=== PATIENT | female | born 1970 | race Caucasian/White ===

== ENCOUNTER 2022-04-07 14:05 | Emergency (ER) | payer OTHER, BC, SELFPAY ==
[2022-04-07 14:11] VITALS: BP 139/86; PULSE 105; RESP 18; TEMP 36.4; O2SAT 96
--- NOTE | 2022-04-07 14:11 | XRR_ITS ---
PROCEDURE INFORMATION: Exam: XR Left Ankle Exam date and time: 04/07/2022 2:26 PM Age: 51 years old Clinical indication: Injury or trauma; Fall; Swelling (edema); Ankle; Left; Additional info: Pain TECHNIQUE: Imaging protocol: Radiologic exam of the Left ankle. Views: 3 or more views. COMPARISON: No relevant prior studies available. FINDINGS: Bones/joints: There is no evidence for acute fracture or malalignment. Soft tissues: Normal. XR/XR ankle LT min 3V* [id number] IMPRESSION: No acute findings.
--- NOTE | 2022-04-07 14:19 | XRR_ITS ---
PROCEDURE INFORMATION: Exam: XR Left Foot Exam date and time: 04/07/2022 2:27 PM Age: 51 years old Clinical indication: Injury or trauma; Fall; Swelling (edema); Ankle; Left; Additional info: Foot pain TECHNIQUE: Imaging protocol: Radiologic exam of the Left foot. Views: 3 or more views. COMPARISON: CR (LOW EXM, ) 04/07/2022 2:26 PM FINDINGS: Bones/joints: There is no evidence for acute fracture or malalignment. Soft tissues: Normal. XR/XR foot LT min 3V* [id number] IMPRESSION: No acute findings.
--- NOTE | 2022-04-07 14:25 | W.ED.LOWEXIN ---
HPI - Extremity Injury (Lower) General: Chief Complaint: Extremity Injury, Lower Stated Complaint: left ankle pain Time Seen by Provider: 04/07/22 14:07 Source: patient Mode of arrival: wheelchair Limitations: no limitations History of Present Illness: Patient is a 51-year-old female presents to ED today for evaluation of a left foot and ankle injury that she sustained early this morning after twisting it. Patient states she has chronic lower back pain with radiculopathy to her left leg. She states she is seeing a surgeon in [place] for this. She states often times her leg will buckle causing her to fall which was the case this morning. She denies any other injuries during the fall. MD complaint: ankle injury and foot injury Onset (ago): hour(s) Injury: Left: ankle and foot Type of Injury: inversion Place: home Severity: severe Relieving factors: immobilization Exacerbating factors: weight bearing, movement and palpation Context: fall Associated symptoms: Reports inability to bear weight Other symptoms: none Treatments prior to arrival: bandage Review of Systems Musc: Reports: back pain (chronic-at baseline), extremity pain (L foot), extremity swelling (L foot), joint pain (L ankle) and joint swelling (L ankle); Denies: neck pain Physical Exam Const: COMMON NORMALS: no acute distress, patient oriented x3, no limitations, alert and well nourished GENERAL APPEARANCE: cooperative HENMT: COMMON NORMALS: normocephalic and atraumatic HEAD & SCALP: normal to inspection, normocephalic and atraumatic Neck/C-Spine: CERVICAL SPINE: No Cervical spine tenderness Extremity: COMMON NORMALS: capillary refill normal GENERAL: Yes normal exam except as noted LEFT LOWER EXTREMITY: Yes ankle joint (mild TTP to lateral malleolus; max tenderness to lateral foot) Left ankle: Yes neurovascular exam (normal) and Yes foot & digits (TTP and swelling to lateral/proximal foot; mild ecchymosis) Left foot and digits: Yes neurovascular exam (normal) Neuro: COMMON NORMALS: patient oriented x3, moves all extremities, no focal motor deficits and no sensory deficits noted SENSORIUM/ORIENTATION: Yes alert Skin: TRAUMA: no lacerations or abrasions Course Vital Signs: Vital signs: Vital Signs Temperature 97.6 F 04/07/22 14:11 Pulse Rate 105 H 04/07/22 14:11 Respiratory Rate 18 04/07/22 14:11 Blood Pressure 139/86 04/07/22 14:11 Pulse Oximetry 96 04/07/22 14:11 MDM - Extremity Injury (Lower) Medical Decision Making Preliminary reads of x-rays by myself are negative. Patient will be placed in an FRIDA wrap, given crutches, and recommend RICE therapy. Recommend follow-up with PCP in 1 to 2 weeks if ankle/foot does not seem to be improving. Discharge Plan Discharge Patient Disposition: Home Clinical Impression: Sprain of left foot Qualifiers: Encounter type: initial encounter Qualified Code(s): S93.602A - Unspecified sprain of left foot, initial encounter Condition: Stable Discharge Orders: Discharge ED (Routine); Ordered 04/07/22 Ordered By: Conchita Raymond Patient Instructions: Ankle Sprain (DC), Foot Sprain (ED), RICE Therapy Stand Alone Forms: Work/School Release Coding Level of Care Code ED Resident Medical Officer for Simone Jain
== END 2022-04-07 14:56 | disposition home or self-care (01) ==
PROVIDERS: Emergency Provider Physician Assistant
DX: S93.602A Unspecified sprain of left foot, initial encounter (principal); X50.1XXA Overexertion from prolonged static or awkward postures, initial encounter
CPT/HCPCS: 73610; 73630; 99285

== ENCOUNTER 2022-08-25 14:20 | Emergency (ER) | payer OTHER, MEDICAID, SELFPAY ==
[2022-08-25 14:22] VITALS: BP 155/101; PULSE 106; RESP 17; TEMP 36.6; O2SAT 96; BMI 26.6
--- NOTE | 2022-08-25 14:29 | W.ED.LOWEXIN ---
Documented by User: KARY Alvarez 08/26/22 07:25 HPI - Extremity Injury (Lower) General: Chief Complaint: Extremity Injury, Lower Stated Complaint: fall left knee/lower leg injury Time Seen by Provider: 08/25/22 14:29 Source: patient Mode of arrival: wheelchair Limitations: no limitations History of Present Illness: Patient is a 52-year-old female presents to ED today for evaluation of left knee and left hip pain. Patient states her left knee will often buckle causing her to fall which was the case this morning. She states during the fall she landed directly onto the left knee and believes she may have twisted the left hip. Patient states she cannot bear weight secondary to the pain. No other injuries or complaints at this time. She has not noticed any notable swelling to either joint or involving the extremity. Denies numbness, tingling, loss of sensation. MD complaint: hip injury and knee injury Onset (ago): hour(s) Injury: Left: hip and knee Place: home Severity: moderate Relieving factors: immobilization Exacerbating factors: weight bearing, movement and palpation Context: fall Associated symptoms: Reports inability to bear weight Other symptoms: none Review of Systems Musc: Reports: joint pain (L knee, L hip); Denies: neck pain, back pain, extremity swelling, joint swelling, joint redness or joint warmth Neuro: Reports: difficulty walking (secondary to left leg pain); Denies: numbness in extremities, weakness in extremities or sensory changes Physical Exam Const: COMMON NORMALS: no acute distress, average body habitus, patient oriented x3, no limitations, alert and well nourished Neck/C-Spine: CERVICAL SPINE: No Cervical spine tenderness Back/Pelvis: COMMON NORMALS: no thoracic nor lumbar tenderness Extremity: COMMON NORMALS: capillary refill normal, no joint enlargement, no clubbing, cyanosis or edema, no calf tenderness and no pedal edema GENERAL: Yes normal exam except as noted LEFT LOWER EXTREMITY: Yes hip joint (TTP although fairly good ROM w/o difficulty) Left hip: Yes neurovascular exam (normal) and Yes knee joint (abrasions and tenderness to L anterior knee; minimal swelling) Left knee: Yes ROM (hesitant ROM; limited with full flexion/extension) and Yes neurovascular exam (normal) Neuro: COMMON NORMALS: patient oriented x3, moves all extremities, no focal motor deficits and no sensory deficits noted SENSORIUM/ORIENTATION: Yes alert GAIT: Yes Unable to assess gait Course ED course: Patient had initially been discharged from the ED as I inadvertently overlooked her tibial plateau fracture on plain film. I personally called patient shortly after discharge and instructed her to return to the ED for knee immobilization/splinting. I spoke to Dr. Perez about patient's films and he requested CT imaging with 3D reconstruction which has now been ordered. Registration was able to place patient back on tracker to finish her care/change of dispo instructions. She will follow up with Dr. Perez in office following CT imaging-CM referral placed. Care will be transferred to Aisha Hughes PA-C pending completion of CT scan and disposition. ES Consultations: Consultation #1: Dr. Perez-recommends CT scan with 3D reconstruction, knee immobilizer, nonweightbearing, and will follow-up in office Vital Signs: Vital signs: Vital Signs Temperature 97.9 F 08/25/22 14:22 Pulse Rate 106 H 08/25/22 14:22 Respiratory Rate 17 08/25/22 16:24 Blood Pressure 155/101 08/25/22 14:22 Pulse Oximetry 96 08/25/22 14:22 Oxygen Delivery Me thod Room Air 08/25/22 14:22 MDM - Extremity Injury (Lower) Lab Data Radiology Impressions Hip/Pelvis X-Ray 08/25/22 14:38 IMPRESSION: No acute findings. If there is desire for further evaluation, a CT scan could be performed. Knee X-Ray 08/25/22 14:38 IMPRESSION: There is a comminuted fracture of the lateral tibial plateau Knee CT 08/25/22 17:20 IMPRESSION: There is a comminuted fracture of the lateral tibial plateau with 1 cm of depression. There is a posterior cruciate ligament avulsion fracture of the proximal posterior tibia. If there is desire for further evaluation, a MRI could be performed. Discharge Plan Discharge Patient Disposition: Home Clinical Impression: Acute pain of left hip Closed fracture of left tibial plateau Qualifiers: Encounter type: initial encounter Qualified Code(s): S82.142A - Displaced bicondylar fracture of left tibia, initial encounter for closed fracture Condition: Stable Discharge Orders: Discharge ED (Routine); Ordered 08/25/22 Ordered By: Conchita Raymond Referrals: Maldonado,Ely L, [employer] MANAGER [Primary Care Provider] - Discharge Diet: Usual diet Discharge Activity: Limit activity as instructed Activity Restrictions/Additional Instructions: Imaging today showed a posterior tibial plateau fracture. After speaking to orthopedics, we did obtain a CT examination for better evaluation of your injury, have placed you in a knee immobilizer, and also given you a prescription to get a wheelchair as you need to be 100% nonweightbearing on this extremity. You need to have follow-up with the clinical specialist and the request for follow-up appointment has been placed on your behalf. We are providing you some medication to help with pain but, you can still apply ice, use Tylenol and ibuprofen as needed. Sign Out Sign Out Data: Patient Sign Out occurred on 08/25/22 at 17:34. Patient's care was discussed, and care was transferred from to KARY Ochoa. Coding Level of Care Code ED [employer] Maker for Chg Fwd Documented by User: KARY Ochoa 08/25/22 18:17 HPI - Extremity Injury (Lower) General: Chief Complaint: Extremity Injury, Lower Stated Complaint: fall left knee/lower leg injury Time Seen by Provider: 08/25/22 14:29 Course Vital Signs: Vital signs: Vital Signs Temperature 97.9 F 08/25/22 14:22 Pulse Rate 106 H 08/25/22 14:22 Respiratory Rate 17 08/25/22 16:24 Blood Pressure 155/101 08/25/22 14:22 Pulse Oximetry 96 08/25/22 14:22 Oxygen Delivery Me thod Room Air 08/25/22 14:22 MDM - Extremity Injury (Lower) Medical Decision Making TATY SolizC: I received transfer of care of this patient at 1700 from Conchita Raymond NP. Patient has known tibial plateau fracture and, Conchita had consulted with orthopedics. Orthopedic recommended CT examination, knee immobilizer, nonweightbearing, and follow-up in the office. At this time, patient was still waiting to go to CT. CT was performed, knee immobilizer was ordered, and a DME order for wheelchair with leg lift was given. Patient was indicating more pain and a Varina was provided prior to discharge. Patient was also given a prescription for Varina for home. Patient was notified that a case management referral for her follow-up to orthopedics had been initiated on her behalf to have her ER follow-up. Differential Diagnosis Likely ankle sprain and strain, fracture of femur and fracture of hip Lab Data Radiology Impressions Hip/Pelvis X-Ray 08/25/22 14:38 IMPRESSION: No acute findings. If there is desire for further evaluation, a CT scan could be performed. Knee X-Ray 08/25/22 14:38 IMPRESSION: There is a comminuted fracture of the lateral tibial plateau Knee CT 08/25/22 17:20 IMPRESSION: There is a comminuted fracture of the lateral tibial plateau with 1 cm of depression. There is a posterior cruciate ligament avulsion fracture of the proximal posterior tibia. If there is desire for further evaluation, a MRI could be performed. Discharge Plan Discharge Patient Disposition: Home Clinical Impression: Acute pain of left hip Closed fracture of left tibial plateau Qualifiers: Encounter type: initial encounter Qualified Code(s): S82.142A - Displaced bicondylar fracture of left tibia, initial encounter for closed fracture Condition: Stable Discharge Orders: Discharge ED (Routine); Ordered 08/25/22 Ordered By: Conchita Raymond Referrals: Ely Maldonado APN [Primary Care Provider] - Discharge Diet: Usual diet Discharge Activity: Limit activity as instructed Activity Restrictions/Additional Instructions: Imaging today showed a posterior tibial plateau fracture. After speaking to orthopedics, we did obtain a CT examination for better evaluation of your injury, have placed you in a knee immobilizer, and also given you a prescription to get a wheelchair as you need to be 100% nonweightbearing on this extremity. You need to have follow-up with the clinical specialist and the request for follow-up appointment has been placed on your behalf. We are providing you some medication to help with pain but, you can still apply ice, use Tylenol and ibuprofen as needed. Sign Out Sign Out Data: Patient Sign Out occurred on 08/25/22 at 17:34. Patient's care was discussed, and care was transferred from to KARY Ochoa. Coding Level of Care Code ED [employer] Maker for Simone Jain
--- NOTE | 2022-08-25 14:38 | XRR_ITS ---
PROCEDURE INFORMATION: Exam: XR Left Hip Exam date and time: 08/25/2022 3:05 PM Age: 52 years old Clinical indication: Injury or trauma; Fall; Blunt trauma (contusions or hematomas); Left; Hip; Additional info: Fall/trauma; One view pelvis too please TECHNIQUE: Imaging protocol: Radiologic exam of the left hip. Views: 2 or 3 views hip with pelvis when performed. COMPARISON: No relevant prior studies available. FINDINGS: Bones/joints: Unremarkable. No acute fracture. Soft tissues: Unremarkable. XR/XR hip LT 2-3V wo/w pel* [id number] IMPRESSION: No acute findings. If there is desire for further evaluation, a CT scan could be performed.
--- NOTE | 2022-08-25 14:38 | XRR_ITS ---
PROCEDURE INFORMATION: Exam: XR Left Knee Exam date and time: 08/25/2022 3:05 PM Age: 52 years old Clinical indication: Injury or trauma; Fall; Wound; Patella or knee; Left; Without foreign body; Additional info: Fall/trauma TECHNIQUE: Imaging protocol: Radiologic exam of the left knee. Views: 3 views. COMPARISON: CR XR foot LT min 3V* [id number] 04/07/2022 2:27 PM FINDINGS: Bones/joints: There is a comminuted fracture of the lateral tibial plateau with approximately 0.7 cm of depression. No dislocation. Soft tissues: There is a small suprapatellar effusion. XR/XR knee LT 3V* [id number] IMPRESSION: There is a comminuted fracture of the lateral tibial plateau
[2022-08-25] MEDS: ketorolac 60 mg/2 mL INJ IM (14:51)
[2022-08-25 16:24] VITALS: RESP 17
--- NOTE | 2022-08-25 17:20 | CTR_ITS ---
PROCEDURE INFORMATION: Exam: CT Left Lower Extremity Without Contrast, Knee Exam date and time: 08/25/2022 5:30 PM Age: 52 years old Clinical indication: Injury or trauma; Fall; Blunt trauma; Knee; Left; Additional info: Tibial plateau fracture, 3d bony reconstruction please TECHNIQUE: Imaging protocol: CT of the left lower extremity without contrast was performed. Exam focused on the knee. Radiation optimization: All CT scans at this facility use at least one of these dose optimization techniques: automated exposure control; mA and/or kV adjustment per patient size (includes targeted exams where dose is matched to clinical indication); or iterative reconstruction. REPORTING DATA: Count of CT and Cardiac NM exams in prior 12 months: This patient has received 0 known CTs and 0 known cardiac nuclear medicine studies in the 12 months prior to the current study. COMPARISON: CR XR knee LT 3V* [id number] 08/25/2022 3:05 PM RADIATION DOSE METRICS: Total DLP (mGy-cm): 322.83 FINDINGS: Bones/joints: There is a comminuted fracture of the lateral tibial plateau with 1 cm of depression. The fracture extends through the base of the tibial spine and extends posteriorly through the posterior mid tibia at the PCL insertion as seen on sagittal image 29. This latter fracture represents a posterior cruciate ligament avulsion fracture. There is some anterior subluxation of the femur relative to the tibia. The patella, femur and fibula appear intact. Soft tissues: There is a small suprapatellar effusion. The visualized anterior and posterior cruciate ligaments appear intact. CT/CT knee LT wo con* [id number] IMPRESSION: There is a comminuted fracture of the lateral tibial plateau with 1 cm of depression. There is a posterior cruciate ligament avulsion fracture of the proximal posterior tibia. If there is desire for further evaluation, a MRI could be performed.
[2022-08-25] MEDS: HYDROcodone-acetaminophen 5-325 mg Tablet 1 TAB PO (18:16)
--- NOTE | 2022-08-26 08:26 | DCPLANNER ---
Addendum entered by Charlene Ball 09/03/22 14:54: Patient had a follow up appointment scheduled with ortho - patient did attend appointment. Addendum entered by Charlene Ball 08/27/22 11:11: Patient has a follow up appointment scheduled for August at 11:[address] Perez at ortho. Original Note: resident services manager had message to schedule a follow up appointment for patient with ortho. resident services manager sent patients information to the front office staff at ortho. Patients information will be printed and reviewed. Clinic will call patient with appointment information.
== END 2022-08-25 19:18 | disposition home or self-care (01) ==
PROVIDERS: Emergency Provider Physician Assistant; PCP Nurse Practitioner Family
DX: S82.142A Displaced bicondylar fracture of left tibia, initial encounter for closed fracture (principal); M25.552 Pain in left hip; W18.39XA Other fall on same level, initial encounter
CPT/HCPCS: 29530; 73502; 73562; 73700; 96372; 99284; J1885

== ENCOUNTER 2022-08-28 14:21 | Outpatient (CLI) | payer OTHER, MEDICAID, SELFPAY | END 2022-08-28 14:22 | disposition home or self-care (01) | LOC: SPT 14:22 | PROVIDERS: PCP Nurse Practitioner Family; Visit Provider Orthopaedic Surgery | DX: Z46.89 Encounter for fitting and adjustment of other specified devices (principal); S82.142D Displaced bicondylar fracture of left tibia, subsequent encounter for closed fracture with routine healing; X58.XXXD Exposure to other specified factors, subsequent encounter | CPT/HCPCS: 97760; L1812 ==

== ENCOUNTER 2022-09-12 10:03 | Day surgery (SDC) | payer BC, MEDICAID, SELFPAY ==
[2022-09-12] VITALS (11 sets, daily range): BP systolic 139–167; BP diastolic 73–100; PULSE 75–90; RESP 15–18; TEMP 36.1–36.6; O2SAT 95–98
--- NOTE | 2022-09-12 | XR_ITS ---
WS: [id number] Left leg including the tibia and fibula, C-arm fluoroscopy, 09/12/2022 Clinical Data: FANNY PICS Comparison: Left knee, 08/25/2022 Findings: Dr. Stoner inserted orthopedic screws to reduce a lateral tibial plateau fracture. XR/XR tibia fibula LT 2V [id number] Impression: Internal fixation of left lateral tibial plateau fracture.
[2022-09-12] MEDS: acetaminophen 1,000 MG/100 ML PIGGYBACK 400 MG IV (11:46)
[2022-09-12] MEDS: sodium chloride 0.9% 1,000 ML 30 ML IV (11:46)
[2022-09-12] MEDS: gabapentin 300 mg Capsule PO (11:47)
[2022-09-12] MEDS: CELEcoxib 200 mg Capsule 400 MG PO (11:47)
[2022-09-12] MEDS: scopolamine 1.5 Patch 1 PATCH TRANSDERMA (11:52)
--- NOTE | 2022-09-12 13:02 | W.PM.OPSUD ---
Surgery/Procedure H&P Update DATE OF PROCEDURE: September 12, 2022 DATE H&P PERFORMED: 08/28/22 H&P UPDATE INFORMATION: I have reviewed H&P completed within last 30 days PREOP DIAGNOSIS: Fracture left tibial plateau PLANNED PROCEDURE: Operation Date: 09/12/22 12:05 Proposed Procedures p arthroscopic ORIF left tibial plateau fracture/ 53630,S82.142A(Left) - Melquiades Perez MD
[2022-09-12] MEDS: midazolam 1 mg/mL INJ 2 mL 2 MG IVP (13:11)
--- NOTE | 2022-09-12 13:14 | ANES.PREANE2 ---
Pre-Anesthetic Assessment Height/Weight: Height 1.63 m Weight 70.307 kg Temp Pulse Resp BP Pulse Ox O2 Del Method 97.9 F 90 18 150/100 98 Room Air 09/12/22 11:10 09/12/22 11:10 09/12/22 11:10 09/12/22 11:10 09/12/22 11:10 09/12/22 11:32 Preop Diagnosis: Fracture left tibial plateau Operation Date: 09/12/22 12:05 Proposed Procedures p arthroscopic ORIF left tibial plateau fracture/ 58435,S82.142A(Left) - Melquiades Perez MD Familial anesthetic complications: none Was Beta Lesly taken within 24 hours: N/A Was Clonidine taken within 24 hours: N/A Last intake: Intake Last Liquid Date 09/11/22 Last Liquid Time 21:00 Last Solid Date 09/11/22 Last Solid Time 21:00 Social Tobacco and No alcohol Exam alert, oriented x 3 and regular rate & rhythm Airway Submandibular: within normal limits Cervical ROM: within normal limits Mallampati: Class II Dentition: full Pulmonary Chronic Obstructive Pulmonary Disease CV/HEM Hypertension Anesthetic Plan ASA status: 2 Anesthesia: General Medications/Allergies Home Medications Medication Instructions Recorded Confirmed Last Taken Type hinged knee brace #1 ea 08/28/22 08/28/22 Unknown Rx losartan 25 mg tablet 25 mg PO DAILY 08/28/22 09/11/22 09/11/22 History Allergies Allergy/AdvReac Type Severity Reaction Status Date / Time trazodone Allergy ALGY-Hives Verified 09/12/22 11:15 Current Medications Generic Name Dose Route Start Last Admin Trade Name Hillq PRN Reason Stop Dose Admin Sodium Chloride 1,000 mls @ 30 mls/hr 09/12/22 11:15 09/12/22 11:46 Sodium Chloride 0.9% IV 09/13/22 11:14 30 mls/hr .Q24H LIDA Administration Midazolam HCl 2 mg 09/12/22 11:10 09/12/22 13:11 Midazolam 1 Mg/Ml Inj 2 Ml IVP 2 mg ONCE PRN Administration Preop Anxiety PFSH Anesthesia Social History (Updated 08/28/22 @ 11:07 by David Pollack LPN) Smoking and tobacco status: current every day smoker Alcohol intake: never Substance/Drug Use: never Data Anesthesia Cardiac Studies: No Data to Display
[2022-09-12] MEDS: ceFAZolin 2,000 MG in sodium chloride 0.9% (plus) 50 ML 100 MG IV (13:32)
--- NOTE | 2022-09-12 14:56 | SUR.OPER ---
Called SO and notified him of surgical progress.
[2022-09-12] MEDS: fentaNYL 50 mcg/mL INJ 2mL IVP (15:40)
--- NOTE | 2022-09-12 15:42 | PM.OP ---
Operative Report Date of procedure: September 12, 2022 Pre-op diagnosis: Preop Diagnosis Fracture left tibial plateau Post-op diagnosis: same Procedure done: Arthroscopic assisted open reduction/internal fixation lateral tibial plateau with allograft bone Implants: Rachael 4.0mm ASNIS screws (65mmx2 and 60mmx1) Surgeon: Melquiades Perez Anesthesia: General Estimated blood loss (mL): 10 Tourniquet time (min): 60 Complications: none Findings: Depression fracture of the lateral tibial plateau with a nondisplaced split fragment and central depression of the lateral tibial plateau of approximately 1 cm of central joint depression. Condition: stable Disposition: PACU Brief History: The patient is a 52-year-old female who sustained a fall on 08/25/2022 with a fracture of her left lateral tibial plateau. CT scan revealed a centimeter of lateral joint depression. Open reduction internal fixation was chosen to restore lateral plateau height and regain stability of the knee. Procedure: The patient was taken to the operating room and given a general anesthesia. She is prepped and draped in the supine position with a tourniquet on the left leg. Timeout was performed. The knee was entered through a standard inferior medial and inferior lateral portal. The diagnostic arthroscopy of the knee was performed. The patellofemoral and medial compartment were pristine. The medial lateral menisci were healthy. Depression of the lateral tibial plateau of the estimated 1 cm was identified. Next the tourniquet was inflated to 300 mmHg. A anterior lateral incision was made and at Cecilia's tubercle extending distally. The anterior lateral musculature was elevated off the proximal and anterior tibial crest leaving a small tissue cuff for later repair. Next a [employer] Pro[employer] guide was used to drive a tibial pin from the lateral tibial plateau up into the central depressed area of tibial plateau. The pin was seen to just pucker the cartilage service. A 10 mm reamer was then passed over the pin penetrating the lateral cortex. A tamp was introduced through that tunnel and bone and with gentle tapping the joint could be elevated. Do to the time since the fracture extra time was utilized but the joint could be brought back up nearly to its [place] level. The defect was then packed with 30 cc of the cancellous bone chips. Next the skin was retracted posteriorly. A ASNIS guidewire was driven from the tibia medially. Over this was passed a 65 mm 4.0 mm cannulated screw with a washer. 2 additional screws were placed posteriorly each approximately a centimeter apart. The second screw measuring 65 mm in length and the third 60 mm in length. Imaging showed satisfactory position of the hardware and elevation of the lateral tibial plateau. The scope was then placed into the joint and the chondral surface inspected to be sure hardware was free of the joint and reduction was maintained. The knee was irrigated of saline and debris's, removing them with the incisor shaver. Next the anterior lateral musculature was reapproximated with 0 Vicryl suture. The subcutaneous tissues were closed with 2-0 Vicryl suture. The skin was closed with a running 3-0 Prolene. Portals were closed with 3-0 Prolene. Sterile dressings were applied. The patient was placed in a hinged knee brace with stops at full extension and 90 degrees of flexion. She was extubated and taken to the recovery room in stable condition where a popliteal block will be placed.
[2022-09-12] MEDS: oxyCODONE 5 mg IR Tab/Cap PO (16:25)
[2022-09-12] MEDS: HYDROmorphone 1 mg/mL INJ 1 mL 0.5 MG IVP (16:26)
--- NOTE | 2022-09-12 16:52 | ANE.PACU2 ---
Inpatient post-anesthesia follow up: Airway intact: Yes Vital signs: Temperature 97.0 F Pulse Rate 78 Respiratory Rate 18 Blood Pressure 146/93 Pulse Oximetry 96 Oxygen Delivery Me thod Room Air Oxygen Flow Rate 6 Fraction of Inspir ed Oxygen Hydration adequate: Yes Nausea and vomiting: No Pain level: 3 Mental status: Baseline
== END 2022-09-12 16:54 | disposition home or self-care (01) ==
PROVIDERS: PCP Nurse Practitioner Family; Visit Provider Orthopaedic Surgery
PROC: (CPT 29855; principal; 2022-09-12 11:55)
DX: S82.142A Displaced bicondylar fracture of left tibia, initial encounter for closed fracture (principal); W19.XXXA Unspecified fall, initial encounter; J44.9 Chronic obstructive pulmonary disease, unspecified; I10 Essential (primary) hypertension; F17.200 Nicotine dependence, unspecified, uncomplicated
CPT/HCPCS: 29855; 73590; 76000; C1713; C1734; J0131; J0690; J1100; J1170; J2250; J2405; J2704; J3010; J7030

== ENCOUNTER 2022-09-20 20:49 | Emergency (ER) | payer BC, MEDICAID, SELFPAY ==
[2022-09-20 21:05] VITALS: BP 113/84; PULSE 89; RESP 18; TEMP 36.6; O2SAT 98; BMI 27.4
--- NOTE | 2022-09-20 21:29 | W.ED.WOUNDLC ---
HPI - Wound/Laceration General: Chief Complaint: Wound/Laceration Stated Complaint: post surgery complications, leg swelling, redness Time Seen by Provider: 09/20/22 21:28 History of Present Illness: Ms. Garcia is a 52-year-old lady with significant past medical history of recent left knee orthopedic surgery presenting to the emergency department for increased swelling and hardness. She does have a history of neuropathy which makes it hard to assess however as not had increased pain above expected. She has had some increased swelling and warmth. Improved with compression wraps. Previously was seen and outpatient ultrasound was ordered however has been worsening and therefore came to the emergency department. No chest pain or shortness of breath. No fevers. No other specific changes in health, exacerbating, or alleviating factors identified. Onset (ago): day(s) Context: other Associated symptoms: Reports pain Review of Systems General: Reports: 10 or more systems reviewed and unremarkable except in HPI and below PFSH ED PFSH: Medical History Closed fracture of lateral portion of left tibial plateau Surgical History H/O knee surgery Social History Smoking and tobacco status: current every day smoker Alcohol intake: never Substance/Drug Use: never Physical Exam Const: COMMON NORMALS: alert GENERAL APPEARANCE: cooperative and well developed HENMT: COMMON NORMALS: normocephalic and atraumatic HEAD & SCALP: normocephalic and atraumatic Eye: COMMON NORMALS: conjunctivae normal CONJUNCTIVA: Yes conjunctivae normal SCLERA: sclerae normal Neck/C-Spine: COMMON NORMALS: supple GENERAL: Yes trachea midline Resp: COMMON NORMALS: normal respiratory effort EFFORT & INSPECTION: Yes able to speak in complete sentences Cardio: COMMON NORMALS: regular rate and regular rhythm RATE: regular rate RHYTHM: regular rhythm GI: COMMON NORMALS: Soft to palpation PALPATION: Yes Soft to palpation and No Tenderness to palpation present (GI) PERCUSSION: normal to percussion Extremity: NARRATIVE EXTREMITY EXAM: Left lower extremity prior knee surgery. There is some surrounding edema and firmness in the lateral lower knee. Distal CMS intact. GENERAL: Yes normal exam except as noted and No edema Neuro: COMMON NORMALS: moves all extremities SENSORIUM/ORIENTATION: Yes alert and No Orientation impaired Psych: COMMON NORMALS: mental status grossly normal and Normal thought process present THOUGHT PROCESS: Normal thought process present Course Vital Signs: Vital signs: Vital Signs Temperature 97.9 F 09/20/22 21:05 Pulse Rate 85 09/20/22 23:11 Respiratory Rate 18 09/20/22 23:11 Blood Pressure 117/84 09/20/22 23:11 Pulse Oximetry 95 09/20/22 23:11 Oxygen Delivery Me thod Room Air 09/20/22 21:45 MDM - Wound/Laceration Medical Decision Making 52-year-old lady presenting with leg swelling and redness concern for possible postoperative complication or DVT. Exam as above. Clinically swelling seems more isolated distally. There is no redness warmth or swelling outside of what would be expected to the knee, low clinical suspicion for infected operative site. X-ray demonstrates expected findings. Negative DVT study. Satisfactory for outpatient follow-up with orthopedics. Likely expected postoperative swelling and changes. The results of ED evaluation were discussed with the patient including prescriptions and/or symptomatic cares (if applicable) including appropriate and responsible use, followup plan, and return precautions. The patient verbalized understanding and felt safe for discharge. Medical Records I reviewed the patient's medical records. Lab Data I reviewed the patient's lab results. Radiology Impressions Knee X-Ray 09/20/22 21:35 IMPRESSION: 1. Three surgical screws are seen traversing a lateral tibial plateau depressed fracture with relatively good alignment of the fracture fragments. Depression of the lateral tibial plateau by 6 mm is again seen. 2. Small joint effusion is present. Venous Duplex 09/20/22 21:35 IMPRESSION: No evidence of deep vein thrombosis. Discharge Plan Discharge Patient Disposition: Home Clinical Impression: Pain and swelling of left knee, Post-operative state Condition: Stable Prescriptions: No Action losartan 25 mg tablet 25 mg PO DAILY (DME) hinged knee brace See Rx Instructions .Route .MEDSUPPLY Qty: 1 0RF Rx Instructions: As directed hydrocodone-acetaminophen 5-325 mg tablet 1 tab PO Q4H PRN (Reason: pain) 5 Days Qty: 30 0RF Discharge Orders: Discharge ED (Routine); Ordered 09/20/22 Ordered By: Corey Soliman Referrals: Ely Maldonado APN [Primary Care Provider] - Discharge Diet: Usual diet Discharge Activity: Limit activity as instructed Patient Instructions: Leg Edema (ED), P.R.I.C.E. Treatment (ED), Opioid Safety Activity Restrictions/Additional Instructions: Thank you for visiting the emergency department. You were seen and evaluated for swelling and pain in the postoperative state. No evidence of blood clot or hardware abnormality was identified on imaging. The most likely cause of your symptoms is normal postoperative swelling. Please follow all previously given instructions. Elevation, compression wraps are likely to help. Return to the emergency department for uncontrolled symptoms, any weakness, color change of toes or feet, worsening numbness or tingling, fevers, inability to tolerate medications, or anything else that you are concerned about. Please follow-up with your orthopedic surgeon, call his office on Friday. Coding Level of Care Code ED Vp [employer] for Simone Jain
--- NOTE | 2022-09-20 21:35 | USR_ITS ---
PROCEDURE INFORMATION: Exam: US Duplex Left Lower Extremity Veins, Limited Exam date and time: 09/20/2022 9:59 PM Age: 52 years old Clinical indication: Swelling (edema) of limb; Lower extremity, left; Prior surgery; Surgery date: 3-7 days post-operative; Surgery type: Lt knee; Additional info: Increased swelling post op eval dvt TECHNIQUE: Imaging protocol: Real-time duplex ultrasound of the left extremity with 2-D peralta scale, color Doppler flow and spectral waveform analysis including responses to compression and other maneuvers (when performed) with image documentation. Limited exam focused on the left lower extremity veins. COMPARISON: US soft tissue/extremity [id number] 05/29/2017 8:13 AM FINDINGS: Left deep veins: Unremarkable. The common femoral, femoral, proximal profunda femoral and popliteal veins are patent without thrombus. Normal Doppler waveforms. Normal compressibility and/or augmentation response. Left superficial veins: Unremarkable. Saphenofemoral junction is patent without thrombus. Soft tissues: Unremarkable. US/CV venous duplex [facility] [id number] IMPRESSION: No evidence of deep vein thrombosis.
--- NOTE | 2022-09-20 21:35 | XRR_ITS ---
PROCEDURE INFORMATION: Exam: XR Left Knee Exam date and time: 09/20/2022 10:11 PM Age: 52 years old Clinical indication: Pain; Knee; Left; Additional info: Post op increased swelling, eval hardware TECHNIQUE: Imaging protocol: Radiologic exam of the left knee. Views: 3 views. COMPARISON: CT knee LT wo con* [id number] 08/25/2022 5:30 PM FINDINGS: Bones/joints: Three surgical screws are seen traversing a lateral tibial plateau depressed fracture with relatively good alignment of the fracture fragments. Depression of the lateral tibial plateau by 6 mm is again seen. Small joint effusion is present. Soft tissues: Normal. XR/XR knee LT 3V* [id number] IMPRESSION: 1. Three surgical screws are seen traversing a lateral tibial plateau depressed fracture with relatively good alignment of the fracture fragments. Depression of the lateral tibial plateau by 6 mm is again seen. 2. Small joint effusion is present.
[2022-09-20 21:45] VITALS: BP 173/109; PULSE 93; RESP 18; O2SAT 97
[2022-09-20 23:11] VITALS: BP 117/84; PULSE 85; RESP 18; O2SAT 95
== END 2022-09-20 22:51 | disposition home or self-care (01) ==
PROVIDERS: Emergency Provider Emergency Medicine; PCP Nurse Practitioner Family
DX: M79.89 Other specified soft tissue disorders (principal); M25.562 Pain in left knee; Z98.890 Other specified postprocedural states; F17.210 Nicotine dependence, cigarettes, uncomplicated
CPT/HCPCS: 73562; 93971; 99284

== ENCOUNTER → 2022-09-25 09:18 | Outpatient (BNVA) | payer BC, MEDICAID, SELFPAY | PROVIDERS: PCP Nurse Practitioner Family; Visit Provider Nurse Practitioner Family | DX: Z98.890 Other specified postprocedural states (principal); S82.142D Displaced bicondylar fracture of left tibia, subsequent encounter for closed fracture with routine healing; X58.XXXD Exposure to other specified factors, subsequent encounter | CPT/HCPCS: 73590 ==

== ENCOUNTER → 2022-10-25 08:57 | Outpatient (BNVA) | payer BC, MEDICAID, SELFPAY | PROVIDERS: PCP Nurse Practitioner Family; Visit Provider Nurse Practitioner Family | DX: S82.122A Displaced fracture of lateral condyle of left tibia, initial encounter for closed fracture (principal); Z98.890 Other specified postprocedural states; X58.XXXA Exposure to other specified factors, initial encounter | CPT/HCPCS: 73562 ==

== ENCOUNTER → 2022-11-19 09:12 | Outpatient (BNVA) | payer BC, MEDICAID, SELFPAY | PROVIDERS: PCP Nurse Practitioner Family; Visit Provider Specialist | DX: S82.122A Displaced fracture of lateral condyle of left tibia, initial encounter for closed fracture (principal); Z98.890 Other specified postprocedural states; X58.XXXA Exposure to other specified factors, initial encounter | CPT/HCPCS: 36415; 80053; 85025 ==

== ENCOUNTER → 2022-11-19 09:50 | Outpatient (BNVA) | payer BC, MEDICAID, SELFPAY | PROVIDERS: PCP Nurse Practitioner Family; Visit Provider Specialist | DX: S82.122A Displaced fracture of lateral condyle of left tibia, initial encounter for closed fracture (principal); Z98.890 Other specified postprocedural states; X58.XXXA Exposure to other specified factors, initial encounter | CPT/HCPCS: 73590 ==

== ENCOUNTER 2022-12-05 07:19 | Outpatient (CLI) | payer BC, MEDICAID, SELFPAY ==
--- NOTE | 2022-12-05 07:30 | CT_ITS ---
WS: [id number] CT LEFT KNEE, NONCONTRAST, 3D HISTORY: History of tibial plateau fracture with repair. Continued pain. Technique: All CT scans at [facility] use at least one of these dose optimization techniques: automated exposure control; mA and/or kV adjustment per patient size (includes targeted exams where dose is matched to clinical indication); or iterative reconstruction. DLP: 298.94 mGy.cm COMPARISON: Radiographs 11/19/[address] 08/25/2022 Transverse screws x3 stabilizing the lateral tibial plateau fracture. No retraction of the screws and no significant loosening around the screws. Complex comminuted fracture involving the lateral tibial plateau is identified. There are multiple bony fragments along the fracture line. Some of these frag ments are displaced. The fragmentation appears to have increased since the previous stabilization CT. Depression of the tibial plateau is similar at 7 mm. Fracture extends through the posterior base of the tibial spines. This tibial spine fracture fragment is slightly elevated into the joint space. Thi s tibia spine fracture does not appear to be stabilized. There are multiple small osseous fragments a long the posterior tibial plateau. Multiple sclerotic bone fragments involve the lateral tibial plateau. These are not completely healed together with no callus formation. Femoral condyles appear normal. Proximal fibula is normal. Small suprapatellar joint effusion. IMPRESSION: 1. Status post transverse screw stabilization lateral tibial plateau fracture. 2. Multiple osseous fragments involving the lateral tibial plateau and through the base of the tibial spine. There is no complete healing along the fracture lines. There is increasing sclerosis througho ut the fracture. Due to the progression of the sclerosis and fragmentation consider osteonecrosis. 3. Fracture fragment involving the posterior tibial spine is not fixated by hardware.
== END 2022-12-05 07:20 | disposition home or self-care (01) ==
PROVIDERS: PCP Nurse Practitioner Family; Visit Provider Specialist
DX: S82.122A Displaced fracture of lateral condyle of left tibia, initial encounter for closed fracture (principal); S82.112A Displaced fracture of left tibial spine, initial encounter for closed fracture; X58.XXXA Exposure to other specified factors, initial encounter; Z98.890 Other specified postprocedural states
CPT/HCPCS: 36415; 73700; 80053; 80503; 85025; 87070; 87075; 87205; 89050

== ENCOUNTER → 2023-01-15 10:45 | Outpatient (BNVA) | payer BC, MEDICAID, SELFPAY | PROVIDERS: PCP Nurse Practitioner Family; Visit Provider Specialist | DX: S82.122K Displaced fracture of lateral condyle of left tibia, subsequent encounter for closed fracture with nonunion; M87.062 Idiopathic aseptic necrosis of left tibia; X58.XXXD Exposure to other specified factors, subsequent encounter | CPT/HCPCS: 36415; 73562; 80053; 81003; 83036; 85025 ==

== ENCOUNTER 2023-01-31 11:52 | Outpatient (CLI) | payer BC, MEDICAID, SELFPAY ==
--- NOTE | 2023-01-31 12:30 | CT_ITS ---
WS: [id number] CT LEFT KNEE, NONCONTRAST TECHNIQUE: Noncontrast CT of the LEFT knee to include the LEFT hip and ankle. 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 FINDINGS: Prior postoperative changes screw fixation lateral tibial plateau fracture. Associated sclerosis carla lar to the prior examination with fragmentation suspicious for osteonecrosis. This is not significant ly changed compared to previous. Adjacent tibial spine fragment is unchanged. Tiny joint effusion. Sigmoid diverticulosis. Urine distended bladder. IMPRESSION: Images obtained for preoperative purposes.
== END 2023-01-31 11:53 | disposition home or self-care (01) ==
LOC: RAD 11:52
PROVIDERS: PCP Nurse Practitioner Family; Visit Provider Specialist
DX: M87.062 Idiopathic aseptic necrosis of left tibia (principal); S82.122K Displaced fracture of lateral condyle of left tibia, subsequent encounter for closed fracture with nonunion; X58.XXXD Exposure to other specified factors, subsequent encounter
CPT/HCPCS: 73700

== ENCOUNTER → 2023-02-06 14:30 | Outpatient (BNVA) | payer BC, MEDICAID, SELFPAY | PROVIDERS: PCP Nurse Practitioner Family; Visit Provider Family Medicine | DX: Z01.818 Encounter for other preprocedural examination (principal); Z79.899 Other long term (current) drug therapy | CPT/HCPCS: 80048; 81000; 81003; 85025 ==

== ENCOUNTER 2023-03-04 16:08 | Observation (INO) | payer BC, MEDICAID, SELFPAY ==
[2023-03-04] VITALS (18 sets, daily range): BP systolic 90–169; BP diastolic 54–101; PULSE 80–106; RESP 12–18; TEMP 36.2–37.1; O2SAT 91–99; BMI 26.6; BMI 28.8
[2023-03-04] MEDS: acetaminophen 1,000 MG/100 ML PIGGYBACK 400 MG IV ×3 (11:22→23:01)
[2023-03-04] MEDS: sodium chloride 0.9% 1,000 ML 30 ML IV (11:23)
[2023-03-04] MEDS: gabapentin 300 mg Capsule PO (11:23)
[2023-03-04] MEDS: CELEcoxib 200 mg Capsule 400 MG PO (11:23)
--- NOTE | 2023-03-04 11:40 | W.PM.OPSUD ---
Surgery/Procedure H&P Update DATE OF PROCEDURE: March 04, 2023 DATE H&P PERFORMED: 02/06/23 H&P UPDATE INFORMATION: I have reviewed H&P completed within last 30 days, I have examined patient prior to procedure, No changes to prior documentation and H&P is in [facility] on date indicated PLANNED PROCEDURE: Operation Date: 03/04/23 12:35 Proposed Procedures p LEFT TOTAL KNEE ARHTROPLASTY WITH MITZI RODRIGUEZJARETH, 27561,M17.10(Left) - Sue Paiz MD s Total Knee Arthroplasty Revision(Left) - Sue Paiz MD Related Problem List Diagnoses (1) Closed fracture of lateral portion of left tibial plateau: Qualifiers: Encounter type: subsequent encounter Fracture healing: with nonunion Qualified Code(s): S82.122K - Displaced fracture of lateral condyle of left tibia, subsequent encounter for closed fracture with nonunion (2) Avascular necrosis of left tibia:
--- NOTE | 2023-03-04 11:41 | ANES.PREANE2 ---
Pre-Anesthetic Assessment Height/Weight: Height 1.63 m Weight 70.307 kg O2 Del Method Room Air 03/04/23 11:14 Operation Date: 03/04/23 12:35 Proposed Procedures p LEFT TOTAL KNEE ARHTROPLASTY WITH MITZI SCHUMACHER, 00235,M17.10(Left) - Sue Paiz MD s Total Knee Arthroplasty Revision(Left) - Sue Paiz MD Familial anesthetic complications: None Was Beta Lesly taken within 24 hours: N/A Was Clonidine taken within 24 hours: N/A Last intake: Intake Last Liquid Date 03/03/23 Last Liquid Time 20:00 Last Solid Date 03/03/23 Last Solid Time 20:00 Social No alcohol and No tobacco Exam alert, oriented x 3, clear to auscultation bilaterally and regular rate & rhythm Airway Mallampati: Class II Dentition: full Anesthetic Plan ASA status: 2 Anesthesia: General (spinal Fusion) and Regional (specify below) Risk of > 500 ml blood loss (7ml/kg in children): No Medications/Allergies Home Medications Medication Instructions Recorded Confirmed Last Taken Type hinged knee brace #1 ea 08/28/22 01/15/23 Unknown Rx baclofen 10 mg tablet 10 mg PO TID PRN muscle spasm 02/06/23 03/03/23 Unknown History duloxetine 20 mg capsule,delayed 20 mg PO BID 02/06/23 03/03/23 Unknown History release hydrocodone 7.5 mg-acetaminophen 1 tab PO TID PRN pain 02/06/23 03/03/23 Unknown History 325 mg tablet olmesartan 20 mg tablet 20 mg PO DAILY 02/06/23 03/03/23 03/03/23 History Allergies Allergy/AdvReac Type Severity Reaction Status Date / Time diltiazem Allergy Hives Verified 03/03/23 16:02 trazodone Allergy ALGY-Hives Verified 03/03/23 16:02 Current Medications Generic Name Dose Route Start Last Admin Trade Name Freq PRN Reason Stop Dose Admin Sodium Chloride 1,000 mls @ 30 mls/hr 03/04/23 11:00 03/04/23 11:23 Sodium Chloride 0.9% IV 03/05/23 10:59 30 mls/hr .Q24H LIDA Administration PFSH Anesthesia Medical History Closed fracture of lateral portion of left tibial plateau Surgical History H/O knee surgery Social History Smoking and tobacco/nicotine status: current every day tobacco/nicotine user Alcohol intake: never Substance/Drug Use: never Data Anesthesia Cardiac Studies: No Data to Display
[2023-03-04] MEDS: ceFAZolin 2,000 MG in sodium chloride 0.9% (plus) 50 ML 100 MG IV ×3 (12:01→23:52)
[2023-03-04] MEDS: vancomycin 1,000 MG SDV 1000 MG XX (13:14)
[2023-03-04] MEDS: ceFAZolin 1,000 mg SDV 4000 MG IRRIGATION (13:16)
[2023-03-04] MEDS: BUPivacaine 0.5% INJ 30 mL 20 ML INJECTION (13:17)
[2023-03-04] MEDS: BUPivacaine liposome 13.3 mg/mL SDV 10 mL 266 MG INFILTRATI (13:17)
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
--- NOTE | 2023-03-04 16:15 | XRR_ITS ---
PROCEDURE INFORMATION: Exam: XR Left Knee Exam date and time: 03/04/2023 5:15 PM Age: 52 years old Clinical indication: Device placement; Joint replacement hardware; Prior surgery; Surgery date: Post-operative (0-2 days); Surgery type: Lt knee; Additional info: Status post left knee total arthroplasty, post operative images in pacu. TECHNIQUE: Imaging protocol: Radiologic exam of the left knee. Views: 1 or 2 views. COMPARISON: CT knee LT wo con* [id number] 01/31/2023 12:22 PM FINDINGS: Bones/joints: No fracture or dislocation or hardware complication. Soft tissues: Postoperative changes. XR/XR knee LT 1-2V [id number] IMPRESSION: No unexpected postoperative findings.
--- NOTE | 2023-03-04 16:40 | ANE.PACU2 ---
Inpatient post-anesthesia follow up: Airway intact: Yes Vital signs: Temperature 97.9 F Pulse Rate 81 Respiratory Rate 16 Blood Pressure 105/64 Pulse Oximetry 94 Oxygen Delivery Me thod Room Air Oxygen Flow Rate 6 Fraction of Inspir ed Oxygen Hydration adequate: Yes Nausea and vomiting: No Pain level: 1 Mental status: Baseline
[2023-03-04] MEDS: chlorhexidine gluconate 0.12% Btl 473 mL 30 ML MUCOUS MEM ×2 (17:37→21:35)
[2023-03-04] MEDS: iron polysaccharide complex 150 mg Capsule PO (17:38)
[2023-03-04] MEDS: CELEcoxib 200 mg Capsule PO (17:38)
[2023-03-04] MEDS: sennosides-docusate Tablet 2 TAB PO (17:39)
[2023-03-04] MEDS: sodium chloride 0.9% 1,000 ML 100 ML IV (17:40)
[2023-03-04] MEDS: mupirocin oint 22 gm 1 APPLIC NASAL (17:53)
[2023-03-04] MEDS: oxyCODONE 5 mg IR Tab/Cap PO (20:15)
[2023-03-05] VITALS (9 sets, daily range): BP systolic 100–128; BP diastolic 60–77; PULSE 69–81; RESP 15–18; TEMP 36.6–36.8; O2SAT 94–97
[2023-03-05] MEDS: oxyCODONE 5 mg IR Tab/Cap PO ×4 (00:27→12:39)
[2023-03-05] MEDS: sodium chloride 0.9% 1,000 ML 100 ML IV (05:10)
[2023-03-05] MEDS: CELEcoxib 200 mg Capsule PO (05:13)
[2023-03-05] MEDS: ceFAZolin 2,000 MG in sodium chloride 0.9% (plus) 50 ML 100 MG IV (06:32)
[2023-03-05 06:40] LABS: Basophils % 0.2 %; Eosinophils % 0.1 %; Hematocrit 28.8 % (36-47); Lymphocytes # 1.9 10^3/uL (0.8-4.8); Lymphocytes % 16.9 %; Mean Corpuscular HGB Conc 33.3 g/dL (30-55); Mean Corpuscular Hemoglobin 31.4 pg (27-33); Mean Corpuscular Volume 94.1 fl (85-98); Mean Platelet Volume 10.4 fL (7.4-10.4); Monocytes # 0.6 10^3/uL (0.2-0.9); Monocytes % 5.5 %; Neutrophils # 8.75 10^3/uL (1.8-7.7); Nucleated Red Blood Cells % 0 %; Platelet Count 220 10^3/cmm (157-399); Red Blood Count 3.06 10^6/uL (3.85-5.65); Red Cell Distribution Width 12.5 % (12.1-15.1); White Blood Count 11.35 10^3/uL (3.29-11.43)
[2023-03-05 06:55] LABS: Blood Urea Nitrogen 6 mg/dL (6-20); Calcium 8.7 mg/dL (8.5-10.5); Carbon Dioxide 24 mmol/L (22-29); Chloride 103 mmol/L (98-107); Glomerular Filtration Rate 129.6 mL/min (90-130); Glucose 122 mg/dL (65-115); Osmolality Calculated 281 mOsm/kg (285-295); Sodium 136 mmol/L (136-145)
[2023-03-05] MEDS: acetaminophen 1,000 MG/100 ML PIGGYBACK 400 MG IV (07:48)
[2023-03-05] MEDS: duloxetine 20 mg Capsule PO (08:31)
[2023-03-05] MEDS: aspirin 325 mg EC Tablet PO ×2 (08:31→08:34)
[2023-03-05] MEDS: iron polysaccharide complex 150 mg Capsule PO (08:31)
[2023-03-05] MEDS: sennosides-docusate Tablet 2 TAB PO (08:31)
[2023-03-05] MEDS: losartan 50 mg Tablet PO (08:35)
[2023-03-05] MEDS: chlorhexidine gluconate 0.12% Btl 473 mL 30 ML MUCOUS MEM ×2 (08:37→12:34)
[2023-03-05] MEDS: mupirocin oint 22 gm 1 APPLIC NASAL (08:37)
--- NOTE | 2023-03-05 10:08 | PC.CHAP ---
Pastoral Care Encounter/Spiritual Assessment Type of Contact [] Declined russian rubber visit [] Patient/Family/Request visit [] Outpatient visit [] Follow-up visit [] Physician referral [] Code/Alert [x] Routine visit [] Staff referral [] Actively dying [] Patient sleeping [x] Family support [] [] Out of room [] Palliative care [] [] Receiving care in room [] Pre-surgical visit [] Trauma [] Long length of stay [] ICU visit [] Other: Relational/Emotional Strength [x] Patient feels connected with others/family/visitors/staff [] Distress [] Loneliness/isolation [] Abandonment Spirituality of Patient [] Person of Tessie [] Attends Christianity of their Tessie [] Believes in Prayer [] Reads Bible or Hinduism materials [] There are Spiritual issues to be addressed Warehouse Associate Interventions [x] Prayer [x] Active listening [] Non-anxious presence [] Spiritual/emotional support [] Crisis/trauma care [] Spiritual counseling [] Bereavement support [] Provided bereavement packet [] Provided Bible/devotional materials [] Provided toy/stuffed animal, coloring book to patient or family member [] Provided Communion [] Anointing/[place] [] Salvation [] Completed spiritual assessment [] Other: Impact on Illness or Injury [] Angry [] Fearful [] Anxious [] Often cries [] Exhaustion [] Unable to work [] Unable to attend buddhist [] Unable to walk/stand [] Unable to read [] Unable to drive [] Unable to eat/drink [] Unable to sleep [] Unable to be with family [] Patient intubated [] Other: Summary Time spent with patient 15 min
--- NOTE | 2023-03-05 12:37 | PC.NURSE ---
0840-Oxy IR one tab 5 mg administered by Wilmer EDGE, did not save. Manually entered. Verified by SN Leelee, Fazal Crum RN, and Shelly Royal RN.
--- NOTE | 2023-03-05 13:56 | P.DS_ITS ---
Discharge Providers Date of Admission: 03/04/23 16:08 Date of Discharge: March 05, 2023 Attending Provider at Admission: Sue Paiz MD Attending Provider at Discharge: Sue Paiz MD Primary Care Provider: Ely Maldonado APN Diagnoses at Discharge Discharge Diagnosis (1) Status post total left knee replacement using cement: Status: Acute Permanent problem details: Date of procedure: March 04, 2023 Diagnosis: Severe degenerative osteoarthritis of the left knee with failed open reduction internal fixation of left tibial plateau fracture. Valgus deformity and retained hardware. Post-op findings: Retained hardware with significant loss of bone lateral tibial plateau with significant degenerative osteoarthritis Procedure done: Left total knee arthroplasty with Sukh guidance and revision components. Removal of tibial hardware x3 through separate incision Implants: The [employer] total knee system with a size 4 triathlon beaded cruciate retaining femur left, a triathlon universal cemented tibial component size 3 with a triathlon total knee cemented stem size 12 mm x 50 mm, a triathlon X3 tibial bearing CS insert size 3 X 13 mm and a beaded triathlon titanium asymmetric patella size 32 x 10 mm (2) Post-traumatic osteoarthritis of left knee: Status: Acute (3) Avascular necrosis of left tibia: Status: Acute (4) Closed fracture of lateral portion of left tibial plateau: Status: Acute Qualifiers: Encounter type: subsequent encounter Fracture healing: with nonunion Qualified Code(s): S82.122K - Displaced fracture of lateral condyle of left tibia, subsequent encounter for closed fracture with nonunion (5) Retained orthopedic hardware: Status: Acute Reason for Visit Reason for Visit: 34357 M17.10 Brief History: This 52-year-old patient presented today for total knee arthroplasty with revision components and Sukh guidance and hardware removal x3 of cannulated screws utilized to treat tibial plateau.? Previously, the patient had arthroscopic assisted open reduction internal fixation of a left tibial plateau fracture with allograft performed by Dr. Perez.? Her date of surgery was 09/12.? Since that time, the patient has had continued pain and inability to ambulate, at the time of presentation to my office, she was using a wheelchair.? Imaging studies demonstrated what appeared to be avascular necrosis of the lateral tibial plateau.? There was collapse of the lateral tibial plateau.? Prior fixation consisted of 3 cannulated screws which were planned to be removed during the surgical procedure.? Preoperatively in the office, questions were answered and consents were signed. Hospital Course Hospital Course Patient was admitted following same-day surgery for left cemented total knee arthroplasty utilizing revision components. Additionally, hardware was removed from the patient's previous tibial plateau treatment. At the time of surgery, there was noted to be a defect in the lateral tibial plateau consistent with the patient's preoperative imaging, however, with appropriate resection, we were able to avoid requiring augments to complete the surgical procedure. We did have to place a stem on the tibial component. This was placed without difficulty. On the first postoperative day, the patient ambulated with physical therapy. This was the first time she had been able to ambulate in several months secondary to issues with her tibial plateau fracture. She had significant valgus instability preoperatively. She was able, however, to ambulate on the first postoperative day uneventfully. She was comfortable and felt appropriate to be discharged to home. Therefore, there was no evidence of DVT, infection, or significant other findings. The patient was discharged to home with instructions on a home exercise program. Physical Exam Const: COMMON NORMALS: no acute distress, average body habitus, patient oriented x3 and alert GENERAL APPEARANCE: cooperative and comfortable ORIENTATION/CONSCIOUSNESS: Yes awake HENMT: COMMON NORMALS: normocephalic and atraumatic HEAD & SCALP: normocephalic and atraumatic Eye: GENERAL EYE: appearance normal, both eyes and all related structures Chest: COMMONS NORMALS: normal inspection of the chest Resp: COMMON NORMALS: normal respiratory effort EFFORT & INSPECTION: Yes able to speak in complete sentences and Yes symmetric chest movement Extremity: LEFT LOWER EXTREMITY: Yes knee joint Left knee: Yes inspection (No significant swelling or ecchymosis. Dressing dry and intact), Yes palpation (Minimal to no tenderness.), Yes ROM (Patient was able to straight leg raise), Yes neurovascular exam (Intact distally) and Yes other (No evidence of DVT) Neuro: COMMON NORMALS: patient oriented x3 SENSORIUM/ORIENTATION: Yes alert Psych: COMMON NORMALS: mental status grossly normal APPEARANCE: Yes grossly normal ATTITUDE: Yes calm and Yes engaged ATTENTION/CONCENTRATION: Yes attention grossly intact Skin: COMMON NORMALS: no rashes or lesions noted GENERAL SKIN EXAM: no rashes or lesions noted Urinary Catheter Management: Arellano: Cath Placed During This Visit: yes, but has since been removed by the nurse Reason for Continuing Indwelling Catheter: Decision to DC Catheter Urinary Catheter Date of Insertion: 03/04/23 Urinary Catheter Time of Insertion: 12:20 Date Urinary Catheter Removed: 03/05/23 Time Urinary Catheter Discontinued: 06:30 Discharge Data Studies Completed and Pending Completed Studies During Hospitalization Category Date Time Status XR knee LT 1-2V [id number] Stat Exams 03/04/23 16:15 Completed Pending at discharge Category Date Time Status Anaerobic Culture Routine Lab 03/04/23 14:12 Results Complete Blood Count w/Auto AM LABS Lab 03/06/23 04:00 Uncollected Complete Blood Count w/Auto AM LABS Lab 03/07/23 04:00 Uncollected Wound Culture and Gram Stain Routine Lab 03/04/23 14:12 Results Radiology Impressions Knee X-Ray 03/04/23 16:15 IMPRESSION: No unexpected postoperative findings. Laboratory Results WBC 11.35 10^3/uL (3.29-11.43) 03/05/23 06:30 RBC 3.06 10^6/uL (3.85-5.65) L 03/05/23 06:30 Hgb 9.60 g/dL (11.27-16.99) L 03/05/23 06:30 Hct 28.8 % (36-47) L 03/05/23 06:30 MCV 94.1 fl (85-98) 03/05/23 06:30 MCH 31.4 pg (27-33) 03/05/23 06:30 MCHC 33.3 g/dL (30-55) 03/05/23 06:30 RDW 12.5 % (12.1-15.1) 03/05/23 06:30 Plt Count 220 10^3/cmm (157-399) 03/05/23 06:30 MPV 10.4 fL (7.4-10.4) 03/05/23 06:30 Neut % (Auto) 77.0 % 03/05/23 06:30 Lymph % (Auto) 16.9 % 03/05/23 06:30 [place] % (Auto) 5.5 % 03/05/23 06:30 Eos % (Auto) 0.1 % 03/05/23 06:30 Baso % (Auto) 0.2 % 03/05/23 06:30 Neut # (Auto) 8.75 10^3/uL (1.8-7.7) H 03/05/23 06:30 Lymph # (Auto) 1.9 10^3/uL (0.8-4.8) 03/05/23 06:30 [place] # (Auto) 0.6 10^3/uL (0.2-0.9) 03/05/23 06:30 Eos # (Auto) 0.0 10^3/uL (0.0-0.8) 03/05/23 06:30 Baso # (Auto) 0.0 10^3/uL (0.0-0.1) 03/05/23 06:30 Nucleated RBC % (auto) 0 % 03/05/23 06:30 Nucleated RBCs # 0.0 /100WBC 03/05/23 06:30 Sodium 136 mmol/L (136-145) 03/05/23 06:30 Potassium 4.0 mmol/L (3.5-5.1) 03/05/23 06:30 Chloride 103 mmol/L (98-107) 03/05/23 06:30 Carbon Dioxide 24 mmol/L (22-29) 03/05/23 06:30 Anion Gap 13.0 (5-19) 03/05/23 06:30 BUN 6 mg/dL (6-20) 03/05/23 06:30 Creatinine 0.5 mg/dL (0.5-0.9) 03/05/23 06:30 GFR Calculation 129.6 mL/min (90-130) 03/05/23 06:30 Glucose 122 mg/dL (65-115) H 03/05/23 06:30 Calculated Osmolality 281 mOsm/kg (285-295) L 03/05/23 06:30 Calcium 8.7 mg/dL (8.5-10.5) 03/05/23 06:30 Vitals Last Vital Signs Temp 97.9 F 03/05/23 12:00 Pulse 81 03/05/23 12:00 Resp 16 03/05/23 12:39 BP 105/64 03/05/23 12:00 Pulse Ox 94 03/05/23 12:00 O2 Del Method Room Air 03/05/23 03:30 O2 Flow Rate 6 03/04/23 16:18 Discharge Plan Discharge Patient Disposition: Home Condition: Stable Prescriptions: New celecoxib 200 mg Capsule 200 mg PO 1XD 30 Days Qty: 30 0RF acetaminophen 500 mg Tablet 1,000 mg PO Q8H Qty: 0 0RF aspirin 325 mg Tablet,Delayed Release (Dr/Ec) 325 mg PO DAILY 30 Days Qty: 0 0RF oxycodone 5 mg Tablet 5 mg PO Q4H PRN (Reason: Moderate Pain) 7 Days Qty: 30 0RF Continued baclofen 10 mg tablet 10 mg PO TID PRN (Reason: muscle spasm) hydrocodone-acetaminophen 7.5-325 mg tablet 1 tab PO TID PRN (Reason: pain) olmesartan 20 mg tablet 20 mg PO DAILY duloxetine 20 mg capsule,delayed release(DR/EC) 20 mg PO BID (DME) hinged knee brace See Rx Instructions .Route .MEDSUPPLY Qty: 1 0RF Rx Instructions: As directed Discharge Orders: Discharge Order (Routine); Ordered 03/05/23 Ordered By: Sue Paiz Other Ambulatory Orders: Physical Therapy Eval and Treat Outpatient (Order) Timeframe: 3 Days Location: Determined by Patient Ordered By: Sue Paiz Referrals: State In Home Service Set Up [Other] (You can call this number to see if you qualify for In home services. You will need your medicaid number when you call. ) Sue Paiz MD [Physician] - 03/19/23 8:15 am (Appointment will be with nurse practitioner Lori Felton) Ely Maldonado APN [Primary Care Provider] - 03/11/23 10:45 am Discharge Diet: Advance as tolerated and Usual diet Discharge Activity: Increase activity as tolerated, Limit activity as instructed, Use walker/crutches as instructed and As per PT/OT instructions Patient Instructions: Aspirin (By mouth), Oxycodone, Rapid Release (By mouth), Celecoxib (By mouth), Total Knee Replacement (GEN), Joint Replacement Stoplight, Opioid Safety Activity Restrictions/Additional Instructions: Weightbearing as tolerated. Posterior hip precautions. Keep your dressing intact. You may shower, but do not sit in water. Follow exercise instructions for postoperative range of motion, strengthening, and gait training. Discharge Attestations Time Spent in Discharge Care*: greater than 30 min Specific Discharge Activities: educating patient, educating and/or supporting family/caregiver, documenting/other paperwork and evaluating patient/reviewing data Quality Metrics Clinical Quality Measures [ No reported AMI, CVA or VTE this stay] Coding Level of Care Code Acute Code for Chg Fwd Diagnoses Status post total left knee replacement using cement Z96.652 Post-traumatic osteoarthritis of left knee M17.32 Avascular necrosis of left tibia M87.062 Closed fracture of lateral portion of left tibial plateau S82.122K Encounter type: subsequent encounter Fracture healing: with nonunion Retained orthopedic hardware Z96.9
--- NOTE | 2023-03-05 15:48 | PC.NURSE ---
Discharge instructions provided to pt. Meds delivered via meds to beds. Pt denies questions or concerns at this time. Ice packs sent with pt. All belongings with pt. Pt. to private vehicle via wheelchair.
== END 2023-03-05 15:52 | disposition home or self-care (01) ==
LOC: MEDSURG 16:34
PROVIDERS: Nurse Practitioner; Admitting Provider Specialist; PCP Nurse Practitioner Family; Visit Provider Specialist
PROC: 8E0Y0CZ Robotic Assisted Procedure of Lower Extremity, Open Approach (ICD-10-PCS; CPT 27447; principal; 2023-03-04 11:55)
PROC: (CPT 20680; 2023-03-04 11:55)
DX: M17.12 Unilateral primary osteoarthritis, left knee (principal); M21.062 Valgus deformity, not elsewhere classified, left knee; T84.89XA Other specified complication of internal orthopedic prosthetic devices, implants and grafts, initial encounter; F17.200 Nicotine dependence, unspecified, uncomplicated
CPT/HCPCS: 20680; 20985; 27447; 36415; 51702; 73560; 80048; 85025; 87070; 87075; 87205; 97110; 97116; 97161; 97165; 97535; C1713; C1776; C9290; G0378; J0131; J0330; J0690; J1100; J1170; J2250; J2371; J2405; J2704; J2710; J2795; J3010; J3370; J3490; J7030

== ENCOUNTER → 2023-03-19 08:14 | Outpatient (BNVA) | payer BC, MEDICAID, SELFPAY | PROVIDERS: PCP Nurse Practitioner Family; Visit Provider Nurse Practitioner | DX: Z96.652 Presence of left artificial knee joint (principal); M17.32 Unilateral post-traumatic osteoarthritis, left knee | CPT/HCPCS: 73560; 73565 ==

== ENCOUNTER → 2023-04-02 08:26 | Outpatient (BNVA) | payer BC, MEDICAID, SELFPAY | PROVIDERS: PCP Nurse Practitioner Family; Visit Provider Nurse Practitioner | DX: Z96.652 Presence of left artificial knee joint (principal); M17.32 Unilateral post-traumatic osteoarthritis, left knee; M54.16 Radiculopathy, lumbar region; G89.29 Other chronic pain | CPT/HCPCS: 73560; 73565 ==

== ENCOUNTER → 2023-05-19 13:07 | Outpatient (BNVA) | payer BC, MEDICAID, SELFPAY | PROVIDERS: PCP Nurse Practitioner Family; Visit Provider Specialist | DX: Z96.652 Presence of left artificial knee joint (principal) | CPT/HCPCS: 73560; 73565 ==

== ENCOUNTER → 2023-11-17 13:24 | Outpatient (BNVA) | payer BC, MEDICAID, SELFPAY | PROVIDERS: PCP Nurse Practitioner Family; Visit Provider Specialist | DX: Z96.652 Presence of left artificial knee joint (principal); S82.122D Displaced fracture of lateral condyle of left tibia, subsequent encounter for closed fracture with routine healing; M87.062 Idiopathic aseptic necrosis of left tibia; X58.XXXD Exposure to other specified factors, subsequent encounter | CPT/HCPCS: 73560; 73565 ==

== ENCOUNTER → 2023-12-02 14:13 | Outpatient (BNVA) | payer BC, MEDICAID, SELFPAY | PROVIDERS: PCP Nurse Practitioner Family; Visit Provider Orthopaedic Surgery | DX: Z98.1 Arthrodesis status (principal) | CPT/HCPCS: 72110 ==

== ENCOUNTER 2023-12-25 09:02 | Outpatient (CLI) | payer BC, MEDICAID, SELFPAY ==
--- NOTE | 2023-12-25 09:30 | MR_ITS ---
WS: [id number] MRI LUMBAR SPINE NONCONTRAST TECHNIQUE: Sagittal T1, T2 and STIR imaging. Axial T1 and T2 imaging. CLINICAL INFORMATION: lumbar pain COMPARISON: None. FINDINGS: Moderate central canal stenosis in the cervical spine on the retail store assistant imaging with disc protrusions at C 5-C6 and C6-C7 with slight indentation of the cervical cord. Recommend further evaluation with cervic al spine MRI. Prior postoperative changes L3-L5 with pedicle screw fixation and anterior interbody fusion. L1-L2: Mild annular bulging. Mild facet arthropathy. Spinal canal and foramen are patent. L2-L3: Mild annular bulging. Mild facet arthropathy. Mild LEFT foraminal narrowing. Mild central shalom l stenosis. L3-L4: Postoperative changes. Spinal canal and foramen are patent. Laminectomy defects. L4-L5: Postoperative changes. Spinal canal and foramen are patent. Laminectomy defects. L5-S1: Mild annular bulging. Slight impingement of traversing LEFT greater than RIGHT S1 nerve roots. Laminectomy defects. Mild LEFT to RIGHT narrowing of the thecal sac. Foramen are patent. Mild facet arthropathy. Visualized pelvic bony structures: Normal. Paravertebral soft tissues: Normal. MR/MR lumbar spine wo con* [id number] IMPRESSION: 1. Moderate central canal stenosis in the cervical spine on the retail store assistant imaging with disc protrusions at C5-C6 and C6-C7 with slight indentation cervical cord. Recommend further evaluation with cervical spine MRI. 2. Postoperative changes L3-L5. Spinal canal and foramen are patent at these l evels with laminectomy defects. 3. Disc bulge L5-S1 with slight impingement on traversing LEFT S1 nerve root i n the subarticular recess. Mild LEFT to RIGHT narrowing of the L5-S1 thecal sac . 4. Mild disc bulging L2-3 with mild central canal stenosis. Mild LEFT L2-3 for aminal narrowing.
== END 2023-12-25 09:03 | disposition home or self-care (01) ==
LOC: RAD 09:02
PROVIDERS: PCP Nurse Practitioner Family; Visit Provider Orthopaedic Surgery
DX: M51.16 Intervertebral disc disorders with radiculopathy, lumbar region (principal); Z98.1 Arthrodesis status; M96.1 Postlaminectomy syndrome, not elsewhere classified; M48.02 Spinal stenosis, cervical region; M50.222 Other cervical disc displacement at C5-C6 level; M50.223 Other cervical disc displacement at C6-C7 level; M51.36 Other intervertebral disc degeneration, lumbar region; M51.37 Other intervertebral disc degeneration, lumbosacral region
CPT/HCPCS: 72148